=== PATIENT | female | born 1995 | race Two or more races ===

== ENCOUNTER 2024-01-05 14:20 | Emergency (ER) | payer MEDICAID ==
[~2024-01-05] VITALS: Ht 165.1 cm; Wt 49.9 kg
[2024-01-05] MEDS ORDERED: ALBU18HF2 INH (14:57)
[2024-01-05] MEDS ORDERED: PRED20TA PO (14:57)
[2024-01-05] MEDS ORDERED: predniSONE 20 MG TABLET ONE (15:04)
[2024-01-05] MEDS ORDERED: IPRATROPIUM NEB FS 0.5 MG/2.5 ML AMPUL.NEB ONE (15:07)
[2024-01-05] MEDS ORDERED: ALBUTEROL FS 2.5 MG/3 ML VIAL.NEB ONE (15:07)
[2024-01-05] MEDS: predniSONE 20 MG TABLET PO ONE (15:08)
[2024-01-05] MEDS: IPRATROPIUM NEB FS 0.5 MG/2.5 ML AMPUL.NEB NEB ONE (15:14)
[2024-01-05] MEDS: ALBUTEROL FS 2.5 MG/3 ML VIAL.NEB NEB ONE (15:14)
[2024-01-05 15:15] VITALS: O2SAT 96
[2024-01-05 15:25] VITALS: O2SAT 100
[2024-01-05 15:26] VITALS: O2SAT 96
[2024-01-05 15:36] VITALS: O2SAT 100
[2024-01-05 16:02] VITALS: BP 121/71; TEMP 98.6; O2SAT 96
== END 2024-01-05 16:04 | disposition home or self-care (01) ==
LOC: ER 14:27
DX: J45.901 Unspecified asthma with (acute) exacerbation (principal); Z91.010 Allergy to peanuts
CPT/HCPCS: 99285; 94640 ×2; J7512